=== PATIENT | male | born 1950 | race Caucasian/White ===

== ENCOUNTER 2023-12-08 12:21 | Inpatient (IN) | payer BC, MEDICAID ==
[~2023-12-08] VITALS: Ht 170.2 cm; Wt 77.8 kg
[2023-12-08] MEDS ORDERED: AMLO2.5T2 PO (12:57)
[2023-12-08] MEDS ORDERED: ATOR20TA66 PO (12:58)
[2023-12-08] MEDS ORDERED: DICY20TA17 PO (12:58)
[2023-12-08] MEDS ORDERED: FAMO20TA8 PO (12:59)
[2023-12-08] MEDS ORDERED: HYDR50TA4 PO (13:00)
[2023-12-08] MEDS ORDERED: ondansetron/PF 4mg/2ml inj IV PRN (13:50)
[2023-12-08] MEDS ORDERED: potassium Cl 40MEQ/1/2NS 520ml 520 ML IV PRN (13:50)
[2023-12-08] MEDS ORDERED: morphine 2 MG/ML inj. syringe IV PRN (13:50)
[2023-12-08] MEDS ORDERED: magnesium 2GM in 50ml NS 50 ML IV PRN (13:50)
[2023-12-08] MEDS ORDERED: magnesium 4gm in 100ml NS 100 ML IV PRN (13:50)
[2023-12-08] MEDS ORDERED: acetaminophen 325mg tablet PO PRN ×2 (13:50)
[2023-12-08] MEDS ORDERED: potassium Cl 20 mEq SR tablet PO PRN (13:50)
[2023-12-08] MEDS ORDERED: magnesium Cl slow-release 64mg tablet PO PRN (13:50)
[2023-12-08 13:53] LABS: ALBUMIN 2.8 G/DL (3.4-5.0); ANION GAP 14 (8-16); BASOPHILS # (AUTO) 0.1 X10'3 (0-0.2); BASOPHILS % (AUTO) 0.6 % (0-1); BLOOD UREA NITROGEN 63 MG/DL (7-18); BUN/CREATININE RATIO 10.3 (10.0-20.0); CALCIUM 8.1 MG/DL (8.5-10.1); CHLORIDE 108 MMOL/L (99-107); CREATININE 6.13 MG/DL (0.60-1.10); EOSINOPHILS # (AUTO) 0.3 X10'3 (0-0.9); EOSINOPHILS % (AUTO) 2.9 % (0-6); GLUCOSE 95 MG/DL (70-104); HEMATOCRIT 30.8 % (42.0-52.0); HEMOGLOBIN 10.9 g/dl (14.0-17.9); LYMPHOCYTES # (AUTO) 2.2 X10'3 (1.1-4.8); LYMPHOCYTES % (AUTO) 21.9 % (21-51); MEAN CORPUSCULAR HGB CONC 35.4 g/dL (33.0-36.5); MEAN PLATELET VOLUME 6.6 FL (7.4-10.4); MONOCYTES # (AUTO) 0.7 X10'3 (0-0.9); MONOCYTES % (AUTO) 7.1 % (2-12); NEUTROPHILS # (AUTO) 6.8 X10'3 (1.8-7.7); NEUTROPHILS % (AUTO) 67.5 % (42-75); PLATELET COUNT 281 X10'3 (140-440); POTASSIUM 3.4 MMOL/L (3.5-5.1); RED BLOOD COUNT 3.75 X10'6 (4.70-6.10); SODIUM 144 MMOL/L (135-145); TOTAL CARBON DIOXIDE 22.5 MMOL/L (24-32); WHITE BLOOD COUNT 10.1 X10'3 (4.5-11.0); eCRCL 10 ML/MIN; eGFR 9 ML/MIN
[2023-12-08] MEDS: normal saline 1000ml 1,000 ML IV SCH (14:04)
[2023-12-08 14:06] LABS: BILIRUBIN,URINE NEGATIVE (Neg); CLARITY,URINE CLEAR (Clear); COLOR,URINE STRAW (Yellow); GLUCOSE, URINE 100 mg/dl (Neg); KETONES,URINE NEGATIVE (Neg); LEUKOCYTE ESTERASE ,URINE NEGATIVE (Neg); NITRITES, URINE NEGATIVE (Neg); OCCULT BLOOD,URINE MODERATE (Neg); PH,URINE 5.5 (4.8-8.0); PROTEIN,URINE 100 mg/dl (Neg); UA COLLECTION TYPE CLN CATCH MIDSTREAM; UROBILINOGEN,URINE 0.2 E.U/dL (0.2-1.0)
[2023-12-08 14:12] LABS: BACTERIA,URINE NONE SEEN /HPF (Neg); RBC,URINE 0-2 /HPF (0-2); SQUAMOUS EPITHELIAL CELL,UR NONE SEEN /LPF (FEW); WBC,URINE NONE SEEN /HPF (0-4)
[2023-12-08] MEDS: labetalol 100mg tablet PO SCH (14:55)
[2023-12-08 17:00] VITALS: BP 174/82; PULSE 73; RESP 16; TEMP 98; O2SAT 96
[2023-12-08 17:14] LABS: URINE AMPHETAMINE SCREEN NEGATIVE (Neg); URINE BARBITUATE SCREEN NEGATIVE (Neg); URINE BENZODIAZEPINES SCREEN NEGATIVE (Neg); URINE CANNABINOID SCREEN NEGATIVE (Neg); URINE COCAINE SCREEN NEGATIVE (Neg); URINE METHADONE SCREEN NEGATIVE (Neg); URINE OPIATE SCREEN NEGATIVE (Neg); URINE PHENCYCLIDINE SCREEN NEGATIVE (Neg)
[2023-12-08] MEDS: sevelamer carbonate 800mg tablet PO SCH (17:30)
[2023-12-08 18:00] VITALS: BP 186/102; PULSE 81; RESP 16; TEMP 97.3; O2SAT 97
[2023-12-08 19:00] VITALS: RESP 20; O2SAT 99
[2023-12-08] MEDS: famotidine 20mg tablet PO SCH (20:00)
[2023-12-08] MEDS: heparin, porcine 5000 units/ml vial SQ SCH (20:22)
[2023-12-08 20:28] VITALS: BP 169/92
[2023-12-08] MEDS: cyclobenzaprine 10mg tablet PO PRN (21:30)
[2023-12-08 22:00] VITALS: BP 159/97; PULSE 77; RESP 18; TEMP 97.3; O2SAT 97
[2023-12-08] MEDS: potassium chloride 10mEq ER tablet PO SCH (22:08)
[2023-12-09] VITALS (7 sets, daily range): BP systolic 119–191; BP diastolic 60–92; PULSE 67–79; RESP 17–21; TEMP 97.3–97.8; O2SAT 96–99
[2023-12-09] MEDS: HYDROcodone/acetaminophen 5mg/325mg tablet PO PRN (00:22)
[2023-12-09] MEDS: hyDRALAzine 10mg tablet PO SCH (03:57)
[2023-12-09 06:51] LABS: BASOPHILS # (AUTO) 0.1 X10'3 (0-0.2); BASOPHILS % (AUTO) 0.5 % (0-1); EOSINOPHILS # (AUTO) 0.3 X10'3 (0-0.9); EOSINOPHILS % (AUTO) 2.6 % (0-6); HEMOGLOBIN 10.4 g/dl (14.0-17.9); LYMPHOCYTES # (AUTO) 2.3 X10'3 (1.1-4.8); LYMPHOCYTES % (AUTO) 23.5 % (21-51); MEAN CORPUSCULAR HEMOGLOBIN 28.3 PG (27.0-31.0); MEAN CORPUSCULAR HGB CONC 34.6 g/dL (33.0-36.5); MEAN CORPUSCULAR VOLUME 81.6 FL (78-98); MEAN PLATELET VOLUME 6.4 FL (7.4-10.4); MONOCYTES # (AUTO) 0.7 X10'3 (0-0.9); MONOCYTES % (AUTO) 7.1 % (2-12); NEUTROPHILS # (AUTO) 6.6 X10'3 (1.8-7.7); NEUTROPHILS % (AUTO) 66.3 % (42-75); PLATELET COUNT 273 X10'3 (140-440); RED BLOOD COUNT 3.68 X10'6 (4.70-6.10); RED CELL DISTRIBUTION WIDTH 14.9 % (11.5-14.5)
[2023-12-09 07:08] LABS: APTT 26 SECONDS (22-32); PROTHROMBIN TIME 10.3 SECONDS (9.0-12.0)
[2023-12-09] MEDS: atorvastatin 20mg tablet PO SCH (07:38)
[2023-12-09 07:45] LABS: ALANINE AMINOTRANSFERASE 19 U/L (12-78); ALBUMIN 2.6 G/DL (3.4-5.0); ALBUMIN/GLOBULIN RATIO 0.7 (1.1-1.5); ALKALINE PHOSPHATASE 66 IU/L (46-116); ANION GAP 15 (8-16); ASPARTATE AMINO TRANSFERASE 18 U/L (10-37); BILIRUBIN,TOTAL 0.8 MG/DL (0.1-1.0); BLOOD UREA NITROGEN 63 MG/DL (7-18); BUN/CREATININE RATIO 10.2 (10.0-20.0); CALCIUM 8.1 MG/DL (8.5-10.1); CHLORIDE 109 MMOL/L (99-107); CHOL/HDL RATIO 3.3 (0.00-4.99); CHOLESTEROL 127 MG/DL (0-200); CREATININE 6.17 MG/DL (0.60-1.10); GLUCOSE 93 MG/DL (70-104); HDL CHOLESTEROL 39 MG/DL (35-60); LDL CHOLESTEROL 70 MG/DL (50-100); PHOSPHORUS 7.5 MG/DL (2.3-4.5); POTASSIUM 3.4 MMOL/L (3.5-5.1); SODIUM 143 MMOL/L (135-145); TOTAL CARBON DIOXIDE 19.1 MMOL/L (24-32); TOTAL PROTEIN 6.2 G/DL (6.4-8.2); TRIGLYCERIDES 80 MG/DL (20-135); eCRCL 10 ML/MIN; eGFR 9 ML/MIN
[2023-12-09] MEDS ORDERED: potassium chloride 10mEq ER tablet PO PRN (09:50)
[2023-12-09] MEDS: potassium chloride 10mEq ER tablet PO PRN (13:26)
[2023-12-09] MEDS ORDERED: CLON1PAT16 TOP (14:34)
[2023-12-09] MEDS: LidoCAINE 2% Topical Jelly 11mL syringe TOP ONE (14:42)
[2023-12-09] MEDS: sodium bicarbonate 1meq/ml inj 150 ML in dextrose 5%-water 1,000 ML IV SCH (15:42)
[2023-12-09] MEDS: cloNIDine 0.3mg/24 hour patch (7 day patch) TD SCH (15:43)
[2023-12-09] MEDS: sevelamer carbonate 800mg tablet PO SCH (18:13)
[2023-12-10] VITALS (7 sets, daily range): BP systolic 132–190; BP diastolic 69–90; PULSE 61–81; RESP 15–18; TEMP 97.2–97.9; O2SAT 96–100
[2023-12-10 07:45] LABS: BASOPHILS # (AUTO) 0.1 X10'3 (0-0.2); BASOPHILS % (AUTO) 0.6 % (0-1); EOSINOPHILS # (AUTO) 0.3 X10'3 (0-0.9); EOSINOPHILS % (AUTO) 3.3 % (0-6); HEMATOCRIT 28.9 % (42.0-52.0); HEMOGLOBIN 10.1 g/dl (14.0-17.9); LYMPHOCYTES # (AUTO) 1.8 X10'3 (1.1-4.8); MEAN CORPUSCULAR HEMOGLOBIN 28.3 PG (27.0-31.0); MEAN CORPUSCULAR HGB CONC 34.8 g/dL (33.0-36.5); MEAN CORPUSCULAR VOLUME 81.4 FL (78-98); MONOCYTES # (AUTO) 0.8 X10'3 (0-0.9); MONOCYTES % (AUTO) 7.6 % (2-12); NEUTROPHILS # (AUTO) 7.2 X10'3 (1.8-7.7); NEUTROPHILS % (AUTO) 70.5 % (42-75); PLATELET COUNT 270 X10'3 (140-440); RED BLOOD COUNT 3.55 X10'6 (4.70-6.10); RED CELL DISTRIBUTION WIDTH 14.6 % (11.5-14.5); WHITE BLOOD COUNT 10.2 X10'3 (4.5-11.0)
[2023-12-10 08:18] LABS: ALANINE AMINOTRANSFERASE 15 U/L (12-78); ALBUMIN 2.6 G/DL (3.4-5.0); ALBUMIN/GLOBULIN RATIO 0.7 (1.1-1.5); ALKALINE PHOSPHATASE 67 IU/L (46-116); ANION GAP 13 (8-16); ASPARTATE AMINO TRANSFERASE 17 U/L (10-37); BILIRUBIN,TOTAL 0.6 MG/DL (0.1-1.0); BLOOD UREA NITROGEN 68 MG/DL (7-18); BUN/CREATININE RATIO 10.5 (10.0-20.0); CALCIUM 7.9 MG/DL (8.5-10.1); CHLORIDE 108 MMOL/L (99-107); CREATININE 6.46 MG/DL (0.60-1.10); GLUCOSE 87 MG/DL (70-104); LACTATE DEHYDROGENASE 154 U/L (85-227); PHOSPHORUS 6.4 MG/DL (2.3-4.5); POTASSIUM 3.2 MMOL/L (3.5-5.1); SODIUM 143 MMOL/L (135-145); TOTAL CARBON DIOXIDE 21.7 MMOL/L (24-32); TOTAL PROTEIN 6.2 G/DL (6.4-8.2); eCRCL 10 ML/MIN; eGFR 9 ML/MIN
[2023-12-10 08:24] LABS: RHEUM FACTOR QUAL REFLEX TITER NEGATIVE (Neg)
[2023-12-10] MEDS: potassium Cl 20 mEq SR tablet PO PRN (18:18)
[2023-12-10] MEDS: normal saline 500ml IV soln 500 ML IV ONE (21:00)
[2023-12-11] VITALS (10 sets, daily range): BP systolic 117–173; BP diastolic 58–98; PULSE 66–98; RESP 12–24; TEMP 97.2–98.9; O2SAT 96–100
[2023-12-11 06:08] LABS: BASOPHILS # (AUTO) 0.1 X10'3 (0-0.2); BASOPHILS % (AUTO) 0.6 % (0-1); EOSINOPHILS # (AUTO) 0.5 X10'3 (0-0.9); EOSINOPHILS % (AUTO) 3.9 % (0-6); HEMATOCRIT 28.6 % (42.0-52.0); HEMOGLOBIN 9.8 g/dl (14.0-17.9); LYMPHOCYTES # (AUTO) 2.6 X10'3 (1.1-4.8); LYMPHOCYTES % (AUTO) 22.1 % (21-51); MEAN CORPUSCULAR HGB CONC 34.1 g/dL (33.0-36.5); MEAN CORPUSCULAR VOLUME 82.3 FL (78-98); MEAN PLATELET VOLUME 6.7 FL (7.4-10.4); MONOCYTES # (AUTO) 0.9 X10'3 (0-0.9); MONOCYTES % (AUTO) 7.6 % (2-12); NEUTROPHILS # (AUTO) 7.6 X10'3 (1.8-7.7); NEUTROPHILS % (AUTO) 65.8 % (42-75); PLATELET COUNT 263 X10'3 (140-440); RED BLOOD COUNT 3.48 X10'6 (4.70-6.10); RED CELL DISTRIBUTION WIDTH 15.1 % (11.5-14.5); WHITE BLOOD COUNT 11.6 X10'3 (4.5-11.0)
[2023-12-11 06:09] LABS: ALANINE AMINOTRANSFERASE 14 U/L (12-78); ALBUMIN 2.5 G/DL (3.4-5.0); ALBUMIN/GLOBULIN RATIO 0.7 (1.1-1.5); ALKALINE PHOSPHATASE 57 IU/L (46-116); ANION GAP 11 (8-16); ASPARTATE AMINO TRANSFERASE 12 U/L (10-37); BILIRUBIN,TOTAL 0.5 MG/DL (0.1-1.0); BLOOD UREA NITROGEN 69 MG/DL (7-18); BUN/CREATININE RATIO 9.9 (10.0-20.0); CALCIUM 8.5 MG/DL (8.5-10.1); CHLORIDE 110 MMOL/L (99-107); CREATININE 6.96 MG/DL (0.60-1.10); GLUCOSE 102 MG/DL (70-104); PHOSPHORUS 6.4 MG/DL (2.3-4.5); POTASSIUM 3.9 MMOL/L (3.5-5.1); SODIUM 143 MMOL/L (135-145); TOTAL CARBON DIOXIDE 21.7 MMOL/L (24-32); TOTAL PROTEIN 6.2 G/DL (6.4-8.2); eCRCL 9 ML/MIN; eGFR 8 ML/MIN
[2023-12-11] MEDS: amLODIPine 5mg tablet PO SCH (09:20)
[2023-12-11] MEDS: famotidine 20mg tablet PO SCH (09:21)
[2023-12-11] MEDS: normal saline 500ml IV soln 500 ML IV SCH (10:01)
[2023-12-11 11:35] LABS: ANTISTREPTOLYSIN O AB 44.4 IU/mL (0.0-200.0); COMPLEMENT C3, SERUM 103 mg/dL (82-167); COMPLEMENT C4, SERUM 24 mg/dL (12-38)
[2023-12-11 17:51] LABS: A/G RATIO 1.1 (0.7-1.7); ALBUMIN 2.9 g/dL (2.9-4.4); ALPHA-1-GLOBULIN 0.2 g/dL (0.0-0.4); ALPHA-2-GLOBULIN 0.6 g/dL (0.4-1.0); ANTINUCLEAR ANTIBODIES Negative (Negative); BETA GLOBULIN 0.7 g/dL (0.7-1.3); GAMMA GLOBULIN 1.2 g/dL (0.4-1.8); GLOBULIN, TOTAL 2.7 g/dL (2.2-3.9); HBSAG SCREEN Negative (Negative); M-SPIKE 0.7 g/dL (Not Observed); PROTEIN, TOTAL, SERUM 5.6 g/dL (6.0-8.5)
[2023-12-12 02:00] VITALS: BP 171/72; PULSE 74; RESP 16; TEMP 97.1; O2SAT 96
[2023-12-12 06:28] LABS: ALANINE AMINOTRANSFERASE 12 U/L (12-78); ALBUMIN 2.7 G/DL (3.4-5.0); ALBUMIN/GLOBULIN RATIO 0.7 (1.1-1.5); ALKALINE PHOSPHATASE 64 IU/L (46-116); ANION GAP 10 (8-16); ASPARTATE AMINO TRANSFERASE 16 U/L (10-37); BILIRUBIN,TOTAL 0.6 MG/DL (0.1-1.0); BLOOD UREA NITROGEN 68 MG/DL (7-18); BUN/CREATININE RATIO 9.9 (10.0-20.0); CALCIUM 8.5 MG/DL (8.5-10.1); CHLORIDE 109 MMOL/L (99-107); CREATININE 6.86 MG/DL (0.60-1.10); GLUCOSE 97 MG/DL (70-104); PHOSPHORUS 6.2 MG/DL (2.3-4.5); POTASSIUM 4.1 MMOL/L (3.5-5.1); SODIUM 141 MMOL/L (135-145); TOTAL CARBON DIOXIDE 21.7 MMOL/L (24-32); TOTAL PROTEIN 6.5 G/DL (6.4-8.2); eCRCL 9 ML/MIN; eGFR 8 ML/MIN
[2023-12-12 06:33] LABS: BASOPHILS # (AUTO) 0.2 X10'3 (0-0.2); BASOPHILS % (AUTO) 1.5 % (0-1); EOSINOPHILS # (AUTO) 0.5 X10'3 (0-0.9); EOSINOPHILS % (AUTO) 4.7 % (0-6); HEMATOCRIT 29.4 % (42.0-52.0); HEMOGLOBIN 10.1 g/dl (14.0-17.9); LYMPHOCYTES % (AUTO) 19.4 % (21-51); MEAN CORPUSCULAR HEMOGLOBIN 28.4 PG (27.0-31.0); MEAN CORPUSCULAR HGB CONC 34.4 g/dL (33.0-36.5); MEAN CORPUSCULAR VOLUME 82.6 FL (78-98); MEAN PLATELET VOLUME 6.9 FL (7.4-10.4); MONOCYTES # (AUTO) 0.8 X10'3 (0-0.9); MONOCYTES % (AUTO) 7.3 % (2-12); NEUTROPHILS # (AUTO) 7.1 X10'3 (1.8-7.7); NEUTROPHILS % (AUTO) 67.1 % (42-75); PLATELET COUNT 258 X10'3 (140-440); RED BLOOD COUNT 3.56 X10'6 (4.70-6.10); RED CELL DISTRIBUTION WIDTH 15.2 % (11.5-14.5); WHITE BLOOD COUNT 10.5 X10'3 (4.5-11.0)
[2023-12-12 07:00] VITALS: BP 178/89; PULSE 83; RESP 18; TEMP 97.1; O2SAT 98
[2023-12-12 08:00] VITALS: RESP 18; O2SAT 98
[2023-12-12] MEDS ORDERED: SEVE800T8 PO (09:43)
[2023-12-12] MEDS ORDERED: hyDRALAzine tablet PO (09:43)
[2023-12-12] MEDS ORDERED: LABE100T8 PO (09:43)
[2023-12-12 11:00] VITALS: BP 116/62; PULSE 62; RESP 11; TEMP 98.2; O2SAT 98
[2023-12-12 15:00] VITALS: BP 153/75; PULSE 67; RESP 14; TEMP 97.8; O2SAT 99
[2023-12-12 15:49] VITALS: BP_SYST 153; PULSE 67
[2023-12-13 18:03] LABS: ATYPICAL PANCA <1:20 titer (Neg:<1:20); CYTOPLASMIC (C-ANCA) <1:20 titer (Neg:<1:20); PERINUCLEAR (P-ANCA) <1:20 titer (Neg:<1:20)
== END 2023-12-12 15:55 | disposition home health service (06) | DRG 683 ==
LOC: ER 12:22 → ED HOLD 13:55 → PCU 3S 16:52
PROVIDERS: ADMIT Internal Medicine; ATTEND Internal Medicine
DX: N17.9 Acute kidney failure, unspecified (principal); E87.20 Acidosis, unspecified; S22.32XA Fracture of one rib, left side, initial encounter for closed fracture; I12.0 Hypertensive chronic kidney disease with stage 5 chronic kidney disease or end stage renal disease; N18.6 End stage renal disease; E87.6 Hypokalemia; M54.9 Dorsalgia, unspecified; E78.5 Hyperlipidemia, unspecified; K21.9 Gastro-esophageal reflux disease without esophagitis; E83.39 Other disorders of phosphorus metabolism; W18.39XA Other fall on same level, initial encounter; Y93.89 Activity, other specified; Y92.89 Other specified places as the place of occurrence of the external cause; Y99.8 Other external cause status; Z90.49 Acquired absence of other specified parts of digestive tract; I69.398 Other sequelae of cerebral infarction
CPT/HCPCS: 36415; 71046; 80048; 80053; 80061; 80305; 81001; 83615; 83735; 84100; 84155; 84165; 85025; 85610; 85651; 85730; 86038; 86060; 86160; 86256; 86430; 86704; 87040; 87081; 87340; 93306; 97116; 97161; 97530; 97535; 99285; A4314; A6258; A6449; C1752; G0378; J1644; J3490; J7030; J7040; J7070